=== PATIENT | female | born 1990 | race African-American/Black ===

== ENCOUNTER → 2020-04-20 | Outpatient (CLI) | payer MEDICAID ==
--- NOTE | 2020-04-20 09:09 | KCIC ---
CHEST PA LATERAL History: Reason: Bronchitis, SOA, cough. / Spl. Instructions: / History: Comparison: None. Findings: No consolidation or pleural effusion. Normal heart size. No pneumothorax. Impression: 1. No acute cardiopulmonary process. Electronically signed by: Fadi Pederson DO (04/20/2020 9:07 AM) [id number]
== END ==
LOC: KCIC 08:48
PROVIDERS: ATTEND Family Medicine
DX: J20.9 Acute bronchitis, unspecified (principal); R06.2 Wheezing; R05 Cough; R06.02 Shortness of breath
CPT/HCPCS: 71046

== ENCOUNTER → 2020-08-12 | Outpatient (CLI) | payer MEDICAID ==
--- NOTE | 2020-08-12 09:41 | RAD ---
INDICATION : Reason: RUQ PAIN / Spl. Instructions: / History: COMPARISON: None TECHNIQUE: Multiple ultrasound images obtained through the abdomen in grayscale and color. FINDINGS: Liver: Mildly echogenic. Within the left lobe there is a heterogenous solid-appearing masslike struct ure identified measuring 49 x 37 x 42 mm. Prominent vascularity to it. Gallbladder: No wall thickening or stones. IVC: Partially distended at level of liver. Common Bile Duct: Not dilated. Pancreas: Limited visualization secondary to overlying structures. Right Kidney: No hydronephrosis. IMPRESSION: * Right lobe of the liver mass is identified which has a solid appearance with internal vascularity . This has a nonspecific ultrasound appearance with both benign causes such as focal nodular hyperpla shaina or hemangioma within the differential as well as higher grade neoplastic causes within the differ ential. Would consider obtaining liver protocol MRI to further assess. Electronically signed by: Leo Adamson MD (08/12/2020 9:39 AM) [id number]
== END ==
LOC: US 08:18
PROVIDERS: ATTEND Family Medicine
DX: K76.9 Liver disease, unspecified (principal)
CPT/HCPCS: 76705

== ENCOUNTER → 2020-08-22 | Outpatient (CLI) | payer MEDICAID ==
[~2020-08-22] MED LIST: GADOTERATE 7.5 MMOL/15ML VIAL. IVP ONE
--- NOTE | 2020-08-22 17:45 | RAD ---
Exam: MRI abdomen without and with contrast INDICATION: Liver mass TECHNIQUE: Multiplanar multisequence MRI of the abdomen was obtained before and after the administrat ion of 15 mL of Cl[place] IV contrast Comparisons: Ultrasound 08/12/2020 FINDINGS: Heart size is normal. No pericardial effusion. Visualized lung bases are clear. Liver contour is normal. No hepatic steatosis. Within the inferior right hepatic lobe segment 5/6 the re is a 4.8 x 4.0 cm mass which demonstrates early arterial enhancement and becomes isodense on more delayed phase imaging. This mass is mildly T2 hyperintense, with no drop of signal on out of phase im aging. No other liver lesions. Spleen, pancreas, gallbladder and adrenals are unremarkable. No perinephric inflammation or hydronephrosis. Visualized portions of the large and small bowel are unremarkable. No intra-abdominal ascites. Visualized portions of aorta and IVC are unremarkable. No enlarged intra-abdominal lymph nodes. Bone marrow signal is normal. IMPRESSION: Corresponding to the mass on ultrasound there is a 4.8 x 4.0 cm mass within the inferior right hepati c lobe. 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 A definitive central scar is not identified. Other possible differential considerations include well-differentiated hepatic laury noma. MRI of the abdomen with Eovist contrast can better differentiate. Electronically signed by: Jackie Dejesus MD (08/22/2020 5:43 PM) [facility]
== END ==
LOC: MRI 09:02
PROVIDERS: ATTEND Family Medicine
DX: R16.0 Hepatomegaly, not elsewhere classified (principal)
CPT/HCPCS: 74183; A9575